=== PATIENT | female | born 1960 | race American Indian/Alaskan Native ===

== ENCOUNTER 2018-09-16 16:37 | Inpatient (IN) | payer MEDICAID ==
[2018-09-16] MEDS ORDERED: NACL 0.9% 500 ML 500 ML IV ONE (16:52)
[2018-09-16] MEDS ORDERED: TYLENOL ONE (17:02)
[2018-09-16] MEDS ORDERED: NORMODYNE IV ONE ×2 (17:08→20:02)
[2018-09-16 17:10] LABS: Basophils % (Auto) 0.5 % (0.0-1.8); Eosinophils % (Auto) 0.1 % (0.0-4.3); Hematocrit 37.5 % (30.3-42.9); Hemoglobin 12.3 gm/dl (10.1-14.3); Lymphocytes # (Auto) 1.4 K/mm3 (1.2-5.4); Lymphocytes % (Auto) 16.3 % (13.4-35.0); Mean Corpuscular HGB Conc 33 % (30-34); Mean Corpuscular Volume 79 fl (79-97); Monocytes # (Auto) 0.7 K/mm3 (0.0-0.8); Monocytes % (Auto) 8.9 % (0.0-7.3); Platelet Count 259 K/mm3 (140-440); Red Blood Count 4.73 M/mm3 (3.65-5.03); Red Cell Distribution Width 16.5 % (13.2-15.2)
[2018-09-16 17:21] LABS: INR 0.97 (0.87-1.13)
[2018-09-16 17:25] LABS: Albumin 4.3 g/dL (3.9-5); BUN/Creatinine Ratio 7; Blood Urea Nitrogen 9 mg/dL (7-17); Calcium 9.3 mg/dL (8.4-10.2); Hemolysis Index 0
[2018-09-16 17:28] LABS: Alanine Aminotransferase < 5 units/L (7-56)
--- NOTE | 2018-09-16 17:35 | XRay Report ---
PROCEDURE: XR CHEST 1V AP TECHNIQUE: Chest radiograph single view. HISTORY: possible Sepsis COMPARISONS: None . FINDINGS: Heart: Mild cardiomegaly. Mediastinum/Vessels: Trachea midline. Lungs/Pleural space: No pneumothorax. No effusion. No acute airspace disease. Bony thorax: No acute osseous abnormality. Life support devices: None. IMPRESSION: No acute cardiopulmonary abnormality. This document is electronically signed by Tariq Gregorio MD., Sep 16 2018 05:33:35 PM ET
[2018-09-16] MEDS ORDERED: TYLENOL PO ONE ×2 (17:53→18:04)
[2018-09-16] MEDS ORDERED: LEVAQUIN PO ONE (17:53)
--- NOTE | 2018-09-16 17:53 | Emergency Department Report ---
ED Seizure HPI - General Chief Complaint: Seizure Stated Complaint: SEIZURE Time Seen by Provider: 09/16/18 17:02 Source: patient, EMS Mode of arrival: Stretcher Limitations: Other - History of Present Illness Initial Comments: Mrs. Castellanos is a 58 yo female with hx of HTN, depression, dyslipidemia, seizure, TIA who presents with seizure today. Witnessed by family at home. First time seizure occurred in January. Patient stated that she has been in her normal state of health. She does not recall any preceding events of what happens today. She admits to drinking alcohol but will not say how frequent. She has been battling a cold with productive cough. Complaint: seizure -: Sudden, This afternoon Witnessed:: Yes Trauma: No Seizure History: other (seizure in January) Possible Precipitating Event: fever Associated Symptoms: cough - Related Data Previous Rx's Medication Instructions Recorded Last Taken Type Aspirin 325 mg PO QDAY #30 tablet 02/20/18 Unknown Rx AtorvaSTATin [Lipitor] 40 mg PO QHS #30 tablet 02/20/18 Unknown Rx Nicotine [Habitrol] 21 mg TD QDAY #5 patch 02/20/18 Unknown Rx amLODIPine [Norvasc] 10 mg PO QDAY #30 tablet 02/20/18 Unknown Rx Allergies Allergy/AdvReac Type Severity Reaction Status Date / Time No Known Allergies Allergy Verified 02/17/18 11:50 ED Review of Systems ROS: Stated complaint: SEIZURE Other details as noted in HPI Comment: All other systems reviewed and negative Constitutional: fever. denies: malaise Respiratory: cough ED Past Medical Hx - Past Medical History Previous Medical History?: Yes Hx Hypertension: Yes Hx Diabetes: Yes Hx Psychiatric Treatment: Yes (dep d/o) - Social History Smoking Status: Current Every Day Smoker Substance Use Type: None - Medications Home Medications: Home Medications Medication Instructions Recorded Confirmed Last Taken Type Aspirin 325 mg PO QDAY #30 tablet 02/20/18 Unknown Rx AtorvaSTATin [Lipitor] 40 mg PO QHS #30 tablet 02/20/18 Unknown Rx Nicotine [Habitrol] 21 mg TD QDAY #5 patch 02/20/18 Unknown Rx amLODIPine [Norvasc] 10 mg PO QDAY #30 tablet 02/20/18 Unknown Rx ED Physical Exam - General Limitations: No Limitations, Other General appearance: alert, in no apparent distress, other (frequent cough) - Head Head exam: Present: atraumatic, normocephalic - Eye Eye exam: Present: normal appearance - ENT ENT exam: Present: mucous membranes moist - Neck Neck exam: Present: normal inspection, full ROM - Respiratory Respiratory exam: Present: normal lung sounds bilaterally. Absent: respiratory distress, wheezes, rales, rhonchi - Cardiovascular Cardiovascular Exam: Present: regular rate, normal rhythm, normal heart sounds. Absent: systolic murmur, diastolic murmur, rubs, gallop - GI/Abdominal GI/Abdominal exam: Present: soft, normal bowel sounds. Absent: distended, tenderness, guarding, rebound - Extremities Exam Extremities exam: Present: normal inspection - Back Exam Back exam: Present: normal inspection - Neurological Exam Neurological exam: Present: alert, oriented X3, CN II-XII intact. Absent: motor sensory deficit - Psychiatric Psychiatric exam: Present: normal affect, normal mood - Skin Skin exam: Present: warm, dry, intact, normal color. Absent: rash ED Course Vital Signs 09/16/18 09/16/18 09/16/18 16:48 16:51 17:13 Temperature 101.8 F H 101.6 F H Pulse Rate 126 H 128 H Respiratory 26 H Rate Blood Pressure 195/98 182/94 Blood Pressure [Left] O2 Sat by Pulse 96 Oximetry 09/16/18 17:18 Temperature Pulse Rate 96 H Respiratory 16 Rate Blood Pressure Blood Pressure 155/70 [Left] O2 Sat by Pulse 97 Oximetry ED Medical Decision Making - Lab Data Result diagrams: 09/16/18 16:55 09/16/18 16:55 Laboratory Results - last 24 hr 09/16/18 09/16/18 09/16/18 16:55 16:55 16:55 WBC 8.4 RBC 4.73 Hgb 12.3 Hct 37.5 MCV 79 MCH 26 L MCHC 33 RDW 16.5 H Plt Count 259 Lymph % (Auto) 16.3 [place] % (Auto) 8.9 H Eos % (Auto) 0.1 Baso % (Auto) 0.5 Lymph # 1.4 [place] # 0.7 Eos # 0.0 Baso # 0.0 Seg Neutrophils % 74.2 H Seg Neutrophils # 6.2 PT 13.5 INR 0.97 VBG pH Sodium 137 Potassium 3.6 Chloride 97.4 L Carbon Dioxide 18 L Anion Gap 25 BUN 9 Creatinine 1.3 H Estimated GFR 51 BUN/Creatinine Ratio 7 Glucose 148 H Calcium 9.3 Total Bilirubin 0.50 AST 16 ALT < 5 L Alkaline Phosphatase 59 Total Protein 8.0 Albumin 4.3 Albumin/Globulin Ratio 1.2 09/16/18 16:55 WBC RBC Hgb Hct MCV MCH MCHC RDW Plt Count Lymph % (Auto) [place] % (Auto) Eos % (Auto) Baso % (Auto) Lymph # [place] # Eos # Baso # Seg Neutrophils % Seg Neutrophils # PT INR VBG pH 7.427 H Sodium Potassium Chloride Carbon Dioxide Anion Gap BUN Creatinine Estimated GFR BUN/Creatinine Ratio Glucose Calcium Total Bilirubin AST ALT Alkaline Phosphatase Total Protein Albumin Albumin/Globulin Ratio - Radiology Data Radiology results: report reviewed AP portable chest radiograph no acute process according to radiology report - Medical Decision Making Mrs. Castellanos presents via EMS for reported seizure. Similar presentation in January. During hospitalization, neurologist did not suspect seizure disorder. Fever noted in ED. with SIRS criteria. Has URI symptoms. Possible PNA vs bronchitis with hx of cough and tobacco use. Sepsis protocol initiated in the ED Admitted to hospitalist service in fair condition Critical care attestation.: If time is entered above; I have spent that time in minutes in the direct care of this critically ill patient, excluding procedure time. ED Disposition Clinical Impression: Seizure, Sepsis, Community acquired pneumonia Disposition: OP ADMIT IP TO THIS HOSP Is pt being admited?: Yes Does the pt Need Aspirin: No Condition: Stable Instructions: Bacterial Pneumonia (ED)
--- NOTE | 2018-09-16 18:06 | Cat Scan Report ---
PROCEDURE: CT HEAD/BRAIN WO CON TECHNIQUE: Computerized tomography of the head was performed without contrast material. CT DOSE LENGTH PRODUCT: 1796 mGycm HISTORY: seizure COMPARISONS: CT head 02/17/2018 . FINDINGS: Skull and scalp: Normal . Paranasal sinuses: Normal . Ventricles and subarachnoid spaces: Normal . Cerebrum: No evidence of hemorrhage, acute infarction or mass . Cerebellum and brainstem: No evidence of hemorrhage, acute infarction or mass . Vasculature: Normal . Other: None . ASPECTS: 10 IMPRESSION: No acute intracranial abnormality. No change. This document is electronically signed by Jocelyn Portillo MD., Sep 16 2018 06:04:13 PM ET
[2018-09-16] MEDS: NACL 0.9% 1000 ML IV ONE ×2 (18:41→22:11)
[2018-09-16] MEDS: ROCEPHIN/NS 2 GM/100 ML 2 GM/100 ML BAG IV SCH (19:01)
[2018-09-16 19:16] LABS: Bacteria,Urine 1+ /HPF (Negative); Bilirubin,Urine NEG (Negative); Blood,Urine LG (Negative); Color,Urine Yellow (Yellow); Hyaline Casts,Urine 3 /LPF; Mucus,Urine 2+ /HPF
[2018-09-16] MEDS: ZITHROMAX 500 MG in NACL 0.9% 250ML 250 ML IV SCH (19:54)
[2018-09-16 20:13] LABS: Amphetamine Screen,Urine PRESUMPTIVE NEGATIVE; Benzodiazepines Screen,Urine PRESUMPTIVE NEGATIVE; Cannabinoid Screen,Urine PRESUMPTIVE NEGATIVE; Cocaine Screen,Urine PRESUMPTIVE NEGATIVE; Methadone Screen,Urine PRESUMPTIVE NEGATIVE; Opiate Screen,Urine PRESUMPTIVE NEGATIVE
[2018-09-16] MEDS ORDERED: ZOFRAN IV PRN (20:36)
[2018-09-16] MEDS ORDERED: ATIVAN IV PRN ×2 (20:36)
[2018-09-16] MEDS ORDERED: PERCOCET 5/325 PO PRN (20:36)
[2018-09-16] MEDS ORDERED: TYLENOL PO PRN (20:36)
[2018-09-16] MEDS ORDERED: SODIUM CHLORIDE FLUSH SYRINGE 10 ML IV PRN (20:36)
[2018-09-16] MEDS ORDERED: D50W (25GM) Syringe IV PRN (21:17)
--- NOTE | 2018-09-16 21:25 | History and Physical Report ---
History of Present Illness Date of examination: 09/16/18 Date of admission: 09/16/18 18:37 Chief complaint: Questionable seizure activity History of present illness: 58-year-old -[place] female with history EtOH abuse, depression, hypertension, diabetes who presents to [facility] via ED with c/o questionable TIA and seizure like activity today. Wanted to EMS documentation seizure was witnessed by family member. Patient states she does not recall the event or anything prior to arrival to the ED. She admits to alcohol consumption but refused to state quantity and frequency. She also complains of cough with yellow/brown sputum production for the past few days accompanied with fever. Admits fever, cough, and sputum production. Denies hemoptysis, headache, chest pain, dyspnea, recent sick contact, visual alterations, or gait abnormalities. Review of medical records shows patient was admitted with similar presentation in January 2018. It was determined patient had a TIA and was advised to follow- up with Dr. Pena as OP. Past History Past Medical History: diabetes, hypertension, seizures, other (depression, TIA) Social history: smoking (tobacco abuse, ongoing smoker), alcohol abuse Medications and Allergies Allergies Allergy/AdvReac Type Severity Reaction Status Date / Time No Known Allergies Allergy Verified 02/17/18 11:50 Home Medications Medication Instructions Recorded Confirmed Last Taken Type Aspirin 325 mg PO QDAY #30 tablet 02/20/18 Unknown Rx AtorvaSTATin [Lipitor] 40 mg PO QHS #30 tablet 02/20/18 Unknown Rx Nicotine [Habitrol] 21 mg TD QDAY #5 patch 02/20/18 Unknown Rx amLODIPine [Norvasc] 10 mg PO QDAY #30 tablet 02/20/18 Unknown Rx Active Meds: Active Medications Acetaminophen (Tylenol) 650 mg PO Q4H PRN PRN Reason: Pain MILD(1-3)/Fever >100.5/[place] Amlodipine Besylate (Norvasc) 10 mg PO QDAY GABO Aspirin (Aspirin) 325 mg PO QDAY GABO Atorvastatin Calcium (Lipitor) 40 mg PO QHS GABO Docusate Sodium (Colace) 100 mg PO BID GABO Heparin Sodium (Porcine) (Heparin) 5,000 unit SUB-Q Q12HR GABO Hydralazine HCl (Apresoline) 10 mg IV Q4HR PRN PRN Reason: HTN SBP>160, DBP>100 Ceftriaxone Sodium (Rocephin/Ns 2 Gm/100 Ml) 2 gm in 100 mls @ 200 mls/hr IV Q24HR GABO; Protocol Last Admin: 09/16/18 19:01 Dose: 200 mls/hr Documented by: Azithromycin 500 mg/ Sodium (Chloride) 250 mls @ 250 mls/hr IV Q24HR GABO; Protocol Last Admin: 09/16/18 19:54 Dose: 250 mls/hr Documented by: Sodium Chloride (Nacl 0.9% 1000 Ml) 1,000 mls @ 100 mls/hr IV DIRECT GABO Lorazepam (Ativan) 2 mg IV Q1H PRN PRN Reason: CIWA-Ar 8-15 Lorazepam (Ativan) 4 mg IV Q1H PRN PRN Reason: CIWA-Ar 16-25 Nicotine (Habitrol) 21 mg TD QDAY GABO Ondansetron HCl (Zofran) 4 mg IV Q8H PRN PRN Reason: Nausea And Vomiting Oxycodone/Acetaminophen (Percocet 5/325) 1 tab PO Q6H PRN PRN Reason: Pain, Moderate (4-6) Sodium Chloride (Sodium Chloride Flush Syringe 10 Ml) 10 ml IV BID GABO Sodium Chloride (Sodium Chloride Flush Syringe 10 Ml) 10 ml IV PRN PRN PRN Reason: LINE FLUSH Review of Systems All systems: negative (no additional remarkable complaints except as noted below) Constitutional: fever Respiratory: cough with sputum (discolored sputum (yellow/ brown)) Neurological: seizures Exam - Physical Exam Narrative exam: Physical exam General appearance: Present: disheveled, crying, oriented 3 unwilling to answer questions - EENT Eyes: Present: PERRL, EOM intact ENT: hearing intact, no dentition - Neck Neck: Present: supple, normal ROM - Respiratory Respiratory effort: Non-labored Respiratory: bilateral: diminished (bases) - Cardiovascular Heart rate: 122 (bpm) Rhythm: Sinus tachycardia Heart Sounds: Present: S1 & S2. Absent: rub, click - Extremities Extremities: no ischemia, pulses intact, - Peripheral Assessment Peripheral Pulses: within normal limits - Abdominal General gastrointestinal: soft, non-tender, normal bowel sounds - Integumentary Integumentary: Present: warm, dry - Musculoskeletal Musculoskeletal: Able to move extremities- Psychiatric Psychiatric: Flat affect - Constitutional Vitals: Temp Pulse Resp BP Pulse Ox 99.1 F 86 18 153/74 98 09/16/18 18:54 09/16/18 20:16 09/16/18 20:16 09/16/18 20:16 09/16/18 20:16 Results - Labs CBC & Chem 7: 09/16/18 16:55 09/16/18 16:55 Labs: Laboratory Last Values WBC 8.4 K/mm3 (4.5-11.0) 09/16/18 16:55 RBC 4.73 M/mm3 (3.65-5.03) 09/16/18 16:55 Hgb 12.3 gm/dl (10.1-14.3) 09/16/18 16:55 Hct 37.5 % (30.3-42.9) 09/16/18 16:55 MCV 79 fl (79-97) 09/16/18 16:55 MCH 26 pg (28-32) L 09/16/18 16:55 MCHC 33 % (30-34) 09/16/18 16:55 RDW 16.5 % (13.2-15.2) H 09/16/18 16:55 Plt Count 259 K/mm3 (140-440) 09/16/18 16:55 Lymph % (Auto) 16.3 % (13.4-35.0) 09/16/18 16:55 [place] % (Auto) 8.9 % (0.0-7.3) H 09/16/18 16:55 Eos % (Auto) 0.1 % (0.0-4.3) 09/16/18 16:55 Baso % (Auto) 0.5 % (0.0-1.8) 09/16/18 16:55 Lymph # 1.4 K/mm3 (1.2-5.4) 09/16/18 16:55 [place] # 0.7 K/mm3 (0.0-0.8) 09/16/18 16:55 Eos # 0.0 K/mm3 (0.0-0.4) 09/16/18 16:55 Baso # 0.0 K/mm3 (0.0-0.1) 09/16/18 16:55 Seg Neutrophils % 74.2 % (40.0-70.0) H 09/16/18 16:55 Seg Neutrophils # 6.2 K/mm3 (1.8-7.7) 09/16/18 16:55 PT 13.5 Sec. (12.2-14.9) 09/16/18 16:55 INR 0.97 (0.87-1.13) 09/16/18 16:55 VBG pH 7.427 (7.320-7.420) H 09/16/18 16:55 Sodium 137 mmol/L (137-145) 09/16/18 16:55 Potassium 3.6 mmol/L (3.6-5.0) 09/16/18 16:55 Chloride 97.4 mmol/L (98-107) L 09/16/18 16:55 Carbon Dioxide 18 mmol/L (22-30) L 09/16/18 16:55 25 mmol/L 09/16/18 16:55 BUN 9 mg/dL (7-17) 09/16/18 16:55 1.3 mg/dL (0.7-1.2) H 09/16/18 16:55 Estimated GFR 51 ml/min 09/16/18 16:55 7 % 09/16/18 16:55 Glucose 148 mg/dL (65-100) H 09/16/18 16:55 Lactic Acid 1.50 mmol/L (0.7-2.0) 09/16/18 21:00 Calcium 9.3 mg/dL (8.4-10.2) 09/16/18 16:55 0.50 mg/dL (0.1-1.2) 09/16/18 16:55 AST 16 units/L (5-40) 09/16/18 16:55 ALT < 5 units/L (7-56) L 09/16/18 16:55 59 units/L (35-129) 09/16/18 16:55 8.0 g/dL (6.3-8.2) 09/16/18 16:55 4.3 g/dL (3.9-5) 09/16/18 16:55 1.2 % 09/16/18 16:55 Yellow (Yellow) 09/16/18 Unknown Slightly-cloudy (Clear) 09/16/18 Unknown 6.0 (5.0-7.0) 09/16/18 Unknown Ur Specific [place] 1.009 (1.003-1.030) 09/16/18 Unknown 30 mg/dl mg/dL (Negative) 09/16/18 Unknown Neg mg/dL (Negative) 09/16/18 Unknown Tr mg/dL (Negative) 09/16/18 Unknown Lg (Negative) 09/16/18 Unknown Neg (Negative) 09/16/18 Unknown Neg (Negative) 09/16/18 Unknown 2.0 mg/dL (<2.0) 09/16/18 Unknown Ur Leukocyte Esterase Lg (Negative) 09/16/18 Unknown 24.0 /HPF (0.0-6.0) H 09/16/18 Unknown 53.0 /HPF (0.0-6.0) 09/16/18 Unknown U Epithel Cells (Auto) 6.0 /HPF (0-13.0) 09/16/18 Unknown 1+ /HPF (Negative) 09/16/18 Unknown Hyaline Casts 3 /LPF 09/16/18 Unknown 2+ /HPF 09/16/18 Unknown Presumptive negative 09/16/18 Unknown Presumptive negative 09/16/18 Unknown Ur Barbiturates Screen Presumptive negative 09/16/18 Unknown Ur Phencyclidine Scrn Presumptive negative 09/16/18 Unknown Ur Amphetamines Screen Presumptive negative 09/16/18 Unknown U Benzodiazepines Scrn Presumptive negative 09/16/18 Unknown Presumptive negative 09/16/18 Unknown U Marijuana (THC) Screen Presumptive negative 09/16/18 Unknown Disclamer 09/16/18 Unknown Plasma/Serum Alcohol < 0.01 % (0-0.07) 09/16/18 17:29 Short CBC 09/16/18 Range/Units 16:55 WBC 8.4 (4.5-11.0) K/mm3 Hgb 12.3 (10.1-14.3) gm/dl Hct 37.5 (30.3-42.9) % Plt Count 259 (140-440) K/mm3 BMP 09/16/18 16:55 Sodium 137 Potassium 3.6 Chloride 97.4 L Carbon Dioxide 18 L BUN 9 Creatinine 1.3 H Glucose 148 H Calcium 9.3 Liver Function 09/16/18 Range/Units 16:55 Total Bilirubin 0.50 (0.1-1.2) mg/dL AST 16 (5-40) units/L ALT < 5 L (7-56) units/L Alkaline Phosphatase 59 (35-129) units/L Albumin 4.3 (3.9-5) g/dL Urine 09/16/18 Range/Units Unknown Urine Color Yellow (Yellow) Urine pH 6.0 (5.0-7.0) Ur Specific [place] 1.009 (1.003-1.030) Urine Protein 30 mg/dl (Negative) mg/dL Urine Glucose (UA) Neg (Negative) mg/dL - Imaging and Cardiology EKG: image reviewed (sinus tachycardia 122 bpm) CT Scan - head: report reviewed (No acute intracranial abnormality. ), image reviewed Assessment and Plan Assessment and plan: 58-year-old -[place] female with history EtOH abuse, depression, hypertension, diabetes who presents to [facility] via ED with c/o questionable TIA and seizure like activity today. On presentation patient is awake and oriented 3 she has elevated lactic acid at 4.9, and is febrile with temperature of 101.8. Will start empirically on antibiotics. Given patient's history of alcohol abuse and CT head unrevealing for acute abnormalities, she will be admitted and mon itored for EtOH withdrawal as well. SIRS URI (suspicion community acquired pneumonia vs bronchitis) Hypertension urgency Hypertension DM2 EtOH withdrawal EtOH abuse Tobacco abuse Hx of depression Plan: Continue supportive care Rocephin 2 g every 24 hours Blood culture pending Urine culture pending Monitor CBC CIWA protocol Monitor BP Norvasc 10 mg daily IV hydralazine when necessary POC BG monitoring SSI Coverage HgbA1c pending Continue Statin Nicotine patch Hydrate IVF Toxicology pending DVT PPX on Heparin Advance Directives: No VTE prophylaxis?: Chemical Plan of care discussed with patient/family: Yes
[2018-09-16] MEDS: SODIUM CHLORIDE FLUSH SYRINGE 10 ML IV SCH (21:44)
[2018-09-16] MEDS: HumaLOG SUB-Q SCH (21:45)
[2018-09-16] MEDS: NACL 0.9% 1000 ML 1,000 ML IV SCH (21:46)
[2018-09-16] MEDS: COLACE PO SCH (22:11)
[2018-09-16] MEDS: HEPARIN SUB-Q SCH (22:11)
[2018-09-17] MEDS: APRESOLINE IV PRN ×2 (01:09→06:13)
[2018-09-17 07:32] LABS: Basophils % (Auto) 0.2 % (0.0-1.8); Hematocrit 36.5 % (30.3-42.9); Hemoglobin 11.9 gm/dl (10.1-14.3); Lymphocytes # (Auto) 1.2 K/mm3 (1.2-5.4); Lymphocytes % (Auto) 15.7 % (13.4-35.0); Mean Corpuscular HGB Conc 33 % (30-34); Mean Corpuscular Volume 80 fl (79-97); Monocytes # (Auto) 0.4 K/mm3 (0.0-0.8); Platelet Count 262 K/mm3 (140-440); Red Blood Count 4.59 M/mm3 (3.65-5.03)
[2018-09-17 07:44] LABS: BUN/Creatinine Ratio 9; Blood Urea Nitrogen 7 mg/dL (7-17); Hemolysis Index 0
[2018-09-17] MEDS: HumaLOG SUB-Q SCH ×4 (08:04→21:57)
--- NOTE | 2018-09-17 08:10 | Progress Note ---
Assessment and Plan Assessment and plan: --Witnessed seizures by family; probable alcohol-related Seizure precautions, Ativan when necessary, EEG if needed CT head without contrast no acute abnormalities ,Neurology consult --Hypokalemia; replace per protocol and monitor levels --Acute kidney injury; vasomotor nephropathy Significantly improved, gentle hydration, monitor renal function Avoid nephrotoxins --Hypertensive urgency; present on admission Pressures significantly improved, continue current antihypertensives When necessary medications --Upper respiratory symptoms/acute bronchitis supportive care, empiric antibiotics --Dyslipidemia; continue statin, low-cholesterol diet --Urinary tract infection; but the UA Urine cultures, empiric antibiotics, supportive care --Obesity BMI 33.2 Advice weight reduction plan medically stable --Ongoing tobacco use; smoking cessation counseling, nicotine patch --History of alcohol use; strongly advised to quit alcohol Closely monitor for alcohol withdrawal symptoms, initiate CIWA if needed --DVT prophylaxis; Lovenox Monitor closely and adjust the management as needed History Interval history: Patient seen and examined medical records reviewed Admitted with altered level of consciousness and seizure-like activity Probably alcohol related, patient feels better No new episodes of seizures Visit minimal tremulousness No agitation or aggression Vital signs reviewed Hospitalist Physical - Constitutional Vitals: Temp Pulse Resp BP Pulse Ox 98.9 F 98 H 16 153/81 98 09/17/18 07:45 09/17/18 07:45 09/17/18 07:45 09/17/18 07:45 09/17/18 07:45 General appearance: Present: no acute distress, well-nourished - EENT Eyes: Present: PERRL, irregular pupil ENT: clear oral mucosa - Neck Neck: Present: supple, normal ROM - Respiratory Respiratory effort: normal, labored Respiratory: bilateral: rales, negative: rhonchi, wheezing - Cardiovascular Rhythm: regular Heart Sounds: Present: S1 & S2 - Extremities Extremities: no ischemia, No edema - Abdominal General gastrointestinal: soft, non-tender, non-distended, normal bowel sounds - Integumentary Integumentary: Present: clear, warm - Psychiatric Psychiatric: appropriate mood/affect, cooperative - Neurologic Neurologic: CNII-XII intact, moves all extremities Results - Labs CBC & Chem 7: 09/17/18 07:16 09/17/18 07:16 Labs: Laboratory Last Values WBC 7.4 K/mm3 (4.5-11.0) 09/17/18 07:16 RBC 4.59 M/mm3 (3.65-5.03) 09/17/18 07:16 Hgb 11.9 gm/dl (10.1-14.3) 09/17/18 07:16 Hct 36.5 % (30.3-42.9) 09/17/18 07:16 MCV 80 fl (79-97) 09/17/18 07:16 MCH 26 pg (28-32) L 09/17/18 07:16 MCHC 33 % (30-34) 09/17/18 07:16 RDW 17.0 % (13.2-15.2) H 09/17/18 07:16 Plt Count 262 K/mm3 (140-440) 09/17/18 07:16 Lymph % (Auto) 15.7 % (13.4-35.0) 09/17/18 07:16 [place] % (Auto) 5.0 % (0.0-7.3) 09/17/18 07:16 Eos % (Auto) 0.0 % (0.0-4.3) 09/17/18 07:16 Baso % (Auto) 0.2 % (0.0-1.8) 09/17/18 07:16 Lymph # 1.2 K/mm3 (1.2-5.4) 09/17/18 07:16 [place] # 0.4 K/mm3 (0.0-0.8) 09/17/18 07:16 Eos # 0.0 K/mm3 (0.0-0.4) 09/17/18 07:16 Baso # 0.0 K/mm3 (0.0-0.1) 09/17/18 07:16 Seg Neutrophils % 79.1 % (40.0-70.0) H 09/17/18 07:16 Seg Neutrophils # 5.8 K/mm3 (1.8-7.7) 09/17/18 07:16 PT 13.5 Sec. (12.2-14.9) 09/16/18 16:55 INR 0.97 (0.87-1.13) 09/16/18 16:55 VBG pH 7.427 (7.320-7.420) H 09/16/18 16:55 Sodium 137 mmol/L (137-145) 09/17/18 07:16 Potassium 3.4 mmol/L (3.6-5.0) L 09/17/18 07:16 Chloride 101.9 mmol/L (98-107) 09/17/18 07:16 Carbon Dioxide 20 mmol/L (22-30) L 09/17/18 07:16 19 mmol/L 09/17/18 07:16 BUN 7 mg/dL (7-17) 09/17/18 07:16 0.8 mg/dL (0.7-1.2) 09/17/18 07:16 Estimated GFR > 60 ml/min 09/17/18 07:16 9 % 09/17/18 07:16 Glucose 124 mg/dL (65-100) H 09/17/18 07:16 POC Glucose 110 (70-105) H 09/17/18 07:49 5.0 % (4-6) 09/16/18 21:00 Lactic Acid 1.50 mmol/L (0.7-2.0) 09/16/18 21:00 Calcium 8.0 mg/dL (8.4-10.2) L 09/17/18 07:16 Phosphorus 2.40 mg/dL (2.5-4.5) L 09/16/18 21:00 Magnesium 2.40 mg/dL (1.7-2.3) H 09/16/18 21:00 0.50 mg/dL (0.1-1.2) 09/16/18 16:55 AST 16 units/L (5-40) 09/16/18 16:55 ALT < 5 units/L (7-56) L 09/16/18 16:55 59 units/L (35-129) 09/16/18 16:55 8.0 g/dL (6.3-8.2) 09/16/18 16:55 4.3 g/dL (3.9-5) 09/16/18 16:55 1.2 % 09/16/18 16:55 Yellow (Yellow) 09/16/18 Unknown Slightly-cloudy (Clear) 09/16/18 Unknown 6.0 (5.0-7.0) 09/16/18 Unknown Ur Specific [place] 1.009 (1.003-1.030) 09/16/18 Unknown 30 mg/dl mg/dL (Negative) 09/16/18 Unknown Neg mg/dL (Negative) 09/16/18 Unknown Tr mg/dL (Negative) 09/16/18 Unknown Lg (Negative) 09/16/18 Unknown Neg (Negative) 09/16/18 Unknown Neg (Negative) 09/16/18 Unknown 2.0 mg/dL (<2.0) 09/16/18 Unknown Ur Leukocyte Esterase Lg (Negative) 09/16/18 Unknown 24.0 /HPF (0.0-6.0) H 09/16/18 Unknown 53.0 /HPF (0.0-6.0) 09/16/18 Unknown U Epithel Cells (Auto) 6.0 /HPF (0-13.0) 09/16/18 Unknown 1+ /HPF (Negative) 09/16/18 Unknown Hyaline Casts 3 /LPF 09/16/18 Unknown 2+ /HPF 09/16/18 Unknown Presumptive negative 09/16/18 Unknown Presumptive negative 09/16/18 Unknown Ur Barbiturates Screen Presumptive negative 09/16/18 Unknown Ur Phencyclidine Scrn Presumptive negative 09/16/18 Unknown Ur Amphetamines Screen Presumptive negative 09/16/18 Unknown U Benzodiazepines Scrn Presumptive negative 09/16/18 Unknown Presumptive negative 09/16/18 Unknown U Marijuana (THC) Screen Presumptive negative 09/16/18 Unknown Disclamer 09/16/18 Unknown Plasma/Serum Alcohol < 0.01 % (0-0.07) 09/16/18 17:29 Active Medications - Current Medications Current Medications: Generic Name Dose Route Start Last Admin Trade Name Freq PRN Reason Stop Dose Admin Acetaminophen 650 mg 09/16/18 20:36 Tylenol PO Q4H PRN Pain MILD(1-3)/Fever >100.5/VALLEJO Amlodipine Besylate 10 mg 09/17/18 10:00 Norvasc PO QDAY GABO Aspirin 325 mg 09/17/18 10:00 Aspirin PO QDAY GABO Atorvastatin Calcium 40 mg 09/16/18 22:00 09/16/18 21:44 Lipitor PO 40 mg QHS GABO Administration Dextrose 50 ml 09/16/18 21:17 D50w (25gm) Syringe IV PRN PRN Hypoglycemia Docusate Sodium 100 mg 09/16/18 22:00 09/16/18 22:11 Colace PO Not Given BID GABO Heparin Sodium (Porcine) 5,000 unit 09/16/18 22:00 09/16/18 22:11 Heparin SUB-Q 5,000 unit Q12HR GABO Administration Hydralazine HCl 10 mg 09/16/18 20:40 09/17/18 06:13 Apresoline IV 10 mg Q4HR PRN Administration HTN SBP>160, DBP>100 Ceftriaxone Sodium 2 gm in 100 mls @ 200 mls/hr 09/16/18 19:00 09/16/18 19:01 Rocephin/Ns 2 Gm/100 Ml IV 200 mls/hr Q24HR GABO Administration Protocol Azithromycin 500 mg/ Sodium 250 mls @ 250 mls/hr 09/16/18 19:00 09/16/18 19:54 Chloride IV 250 mls/hr Q24HR GABO Administration Protocol Sodium Chloride 1,000 mls @ 100 mls/hr 09/16/18 21:00 09/16/18 21:46 Nacl 0.9% 1000 Ml IV 100 mls/hr DIRECT GABO Administration Insulin Human Lispro 0 unit 09/16/18 22:00 09/17/18 08:04 Humalog SUB-Q Not Given ACHS [facility] Protocol Insulin Human Regular 3 units 09/17/18 07:30 Humulin R SUB-Q AC GABO Lorazepam 2 mg 09/16/18 20:36 09/17/18 01:17 Ativan IV 2 mg Q1H PRN Administration CIWA-Ar 8-15 Lorazepam 4 mg 09/16/18 20:36 Ativan IV Q1H PRN CIWA-Ar 16-25 Nicotine 21 mg 09/17/18 10:00 Habitrol TD QDAY GABO Ondansetron HCl 4 mg 09/16/18 20:36 Zofran IV Q8H PRN Nausea And Vomiting Oxycodone/Acetaminophen 1 tab 09/16/18 20:36 Percocet 5/325 PO Q6H PRN Pain, Moderate (4-6) Sodium Chloride 10 ml 09/16/18 22:00 09/16/18 21:44 Sodium Chloride Flush Syringe 10 Ml IV 10 ml BID GABO Administration Sodium Chloride 10 ml 09/16/18 20:36 Sodium Chloride Flush Syringe 10 Ml IV PRN PRN LINE FLUSH
[2018-09-17] MEDS ORDERED: K-DUR PO ONE (08:16)
[2018-09-17] MEDS: COLACE PO SCH ×2 (09:08→21:17)
[2018-09-17] MEDS: ASPIRIN PO SCH (09:08)
[2018-09-17] MEDS: HABITROL TD SCH (09:08)
[2018-09-17] MEDS: ROCEPHIN/NS 2 GM/100 ML 2 GM/100 ML BAG IV SCH (09:09)
[2018-09-17] MEDS: NORVASC PO SCH (09:09)
[2018-09-17] MEDS: ZITHROMAX 500 MG in NACL 0.9% 250ML 250 ML IV SCH (09:10)
[2018-09-17] MEDS: HEPARIN SUB-Q SCH ×2 (09:14→21:17)
[2018-09-17] MEDS: HumuLIN R SUB-Q SCH ×3 (09:18→17:06)
[2018-09-17] MEDS: SODIUM CHLORIDE FLUSH SYRINGE 10 ML IV SCH ×2 (10:28→21:17)
[2018-09-17] MEDS: NACL 0.9% 1000 ML 1,000 ML IV SCH (19:25)
[2018-09-18] MEDS: APRESOLINE IV PRN (04:14)
[2018-09-18] MEDS: NACL 0.9% 1000 ML 1,000 ML IV SCH (04:18)
[2018-09-18] MEDS: HumaLOG SUB-Q SCH ×3 (07:30→16:30)
[2018-09-18] MEDS: HumuLIN R SUB-Q SCH ×3 (07:30→16:30)
[2018-09-18 08:03] LABS: BUN/Creatinine Ratio 8; Blood Urea Nitrogen 6 mg/dL (7-17); Calcium 8.5 mg/dL (8.4-10.2); Hemolysis Index 8
[2018-09-18] MEDS: COLACE PO SCH (09:54)
[2018-09-18] MEDS: ASPIRIN PO SCH (09:55)
[2018-09-18] MEDS: HEPARIN SUB-Q SCH (09:55)
[2018-09-18] MEDS: HABITROL TD SCH (09:57)
[2018-09-18] MEDS: NORVASC PO SCH (09:57)
[2018-09-18] MEDS: ZITHROMAX 500 MG in NACL 0.9% 250ML 250 ML IV SCH (10:00)
[2018-09-18] MEDS: ROCEPHIN/NS 2 GM/100 ML 2 GM/100 ML BAG IV SCH (10:00)
[2018-09-18] MEDS: SODIUM CHLORIDE FLUSH SYRINGE 10 ML IV SCH (10:00)
[2018-09-18] MEDS ORDERED: K-DUR PO ONE (12:21)
--- NOTE | 2018-09-18 12:24 | Discharge Summary ---
Providers - Providers Date of Admission: 09/16/18 18:37 Date of discharge: 09/18/18 Attending physician: ANA BRO 09/16/18 21:17 Consult to Dietitian/Nutrition [CONS] Routine Physician Instructions: Reason For Exam: Reason for Consult: Diet education Primary care physician: EMAIL DEVELOPER Hospitalization Reason for admission: Witnessed Seizure Condition: Stable Pertinent studies: CXR :Normal study CT head with out contrast:No acute abnormality Hospital course: 58-year-old -[place] female with history EtOH abuse, depression, hypertension, diabetes was admitted through ER with seizure like activity today. Patient admits to alcohol consumption,seizure probably alohol related. Patient also c/o URI symptoms and bronchitis ,Symptomatically managed,placed on seizure precautions , Closely monitored for alcohol withdrawal symptoms,and placed on CIWA protocol. Patient's symptoms significantly improved. Today patient is comfortable,no new complaints,vital signs are stable.Physical exam is unremarkable. Advised not to drive till cleare by PMD,Advised to quit alcohol intake and seek alcohol rehabilitation. Smoking cessation advised.Patient is stable at discharge. Discharge Diagnosis: --Witnessed seizures by family; probable alcohol-related Seizure precautions, Ativan when necessary, CT head without contrast no acute abnormalities ,Neurology consult --Hypokalemia; replace per protocol and monitor levels --Acute kidney injury; vasomotor nephropathy Significantly improved, gentle hydration, monitor renal function Avoid nephrotoxins --Hypertensive urgency; present on admission Pressures significantly improved, continue current antihypertensives When necessary medications --Upper respiratory symptoms/acute bronchitis supportive care, empiric antibiotics --Dyslipidemia; continue statin, low-cholesterol diet --Urinary tract infection; but the UA Urine cultures, empiric antibiotics, supportive care --Obesity BMI 33.2 Advice weight reduction plan medically stable --Ongoing tobacco use; smoking cessation counseling, nicotine patch --History of alcohol use; strongly advised to quit alcohol Closely monitor for alcohol withdrawal symptoms, initiate CIWA if needed --DVT prophylaxis; Lovenox Stable at discharge Disposition: DC-01 TO HOME OR SELFCARE Time spent for discharge: 32 min Core Measure Documentation - Palliative Care Palliative Care/ Comfort Measures: Not Applicable - Core Measures Any of the following diagnoses?: none Exam - Constitutional Vitals: Temp Pulse Resp BP Pulse Ox 98.4 F 78 18 170/90 96 09/18/18 04:05 09/18/18 09:57 09/18/18 04:05 09/18/18 09:57 09/18/18 04:05 General appearance: Present: no acute distress, well-nourished, obese - EENT Eyes: Present: PERRL, EOM intact - Neck Neck: Present: supple, normal ROM - Respiratory Respiratory effort: normal Respiratory: negative: rales, rhonchi, wheezing - Cardiovascular Rhythm: regular Heart Sounds: Present: S1 & S2 - Extremities Extremities: no ischemia, No edema - Abdominal General gastrointestinal: Present: soft, non-tender, normal bowel sounds - Integumentary Integumentary: Present: clear, warm - Musculoskeletal Musculoskeletal: strength equal bilaterally - Psychiatric Psychiatric: appropriate mood/affect, cooperative - Neurologic Neurologic: CNII-XII intact, moves all extremities Plan Activity: advance as tolerated, no driving until cleared by PCP, fall precautions Diet: diabetic Special Instructions: smoking cessation Additional Instructions: Smoking cessation. Advised to quit alcohol intake. Fall precautions Follow up with: PRIMARY CARE, [Primary Care Provider] - 3-5 Days Prescriptions: hydrALAZINE [Apresoline TAB] 25 mg PO Q8HR #90 tablet Folic Acid [Folvite] 1 mg PO QDAY #30 tablet Thiamine [Vitamin B-1] 100 mg PO QDAY #30 tablet
[2018-09-18 12:51] VITALS: BP 153/83
[2018-09-18] MEDS ORDERED: APRESOLINE PO SCH (14:00)
== END 2018-09-18 18:50 | disposition home or self-care (01) | DRG 871 ==
LOC: ED 16:37 → 4A 18:37
PROVIDERS: ADMIT Internal Medicine; ATTEND Internal Medicine
DX: A41.9 Sepsis, unspecified organism (principal); N17.0 Acute kidney failure with tubular necrosis; J18.9 Pneumonia, unspecified organism; I16.0 Hypertensive urgency; I10 Essential (primary) hypertension; F32.9 Major depressive disorder, single episode, unspecified; E78.5 Hyperlipidemia, unspecified; E11.9 Type 2 diabetes mellitus without complications; F17.210 Nicotine dependence, cigarettes, uncomplicated; G40.89 Other seizures; F10.10 Alcohol abuse, uncomplicated; E87.6 Hypokalemia; J20.9 Acute bronchitis, unspecified; N39.0 Urinary tract infection, site not specified; E66.9 Obesity, unspecified; Z68.33 Body mass index [BMI] 33.0-33.9, adult; Z86.73 Personal history of transient ischemic attack (TIA), and cerebral infarction without residual deficits
CPT/HCPCS: 36415; 70450; 71045; 80048; 80053; 80307; 80320; 81001; 82140; 82805; 82962; 83036; 83735; 84100; 85025; 85610; 87040; 87086; 93005; 93010; 99406; G0378; A9270-GY; G0480; J0360; J0456; J0696; J1644; J1815; J2060; J7030; J7040; J7050